=== PATIENT | male | born 1990 | race African-American/Black ===

== ENCOUNTER 2016-11-30 17:21 | Emergency (ER) | payer BC ==
[~2016-11-30] VITALS: Ht 185.4 cm; Wt 79.4 kg
[~2016-11-30 17:21] MED LIST: KEFLEX500 M1 PO; MEDROLDOSEPACK PO; NAPROSYN500 MG PO; NORFLEX100 MG PO; ULTRAM 50MG TAB50 MG PO; ZYRTEC10 MG PO
[2016-11-30 17:23] VITALS: BP 136/93
[2016-11-30] MEDS ORDERED: LIORESAL 10 MG10 MG PO (18:05)
[2016-11-30] MEDS ORDERED: MOBIC15 MG PO (18:05)
[2016-11-30] MEDS ORDERED: LIDODERM 5%1 PATC1 TRANSDERM (18:05)
== END 2016-11-30 18:22 | disposition home or self-care (01) ==
LOC: ER 17:21
DX: S39.012A Strain of muscle, fascia and tendon of lower back, initial encounter (principal); S90.32XA Contusion of left foot, initial encounter; F17.210 Nicotine dependence, cigarettes, uncomplicated; F10.99 Alcohol use, unspecified with unspecified alcohol-induced disorder; W22.8XXA Striking against or struck by other objects, initial encounter; Y93.89 Activity, other specified; Y92.89 Other specified places as the place of occurrence of the external cause; Y99.8 Other external cause status; J45.909 Unspecified asthma, uncomplicated

== ENCOUNTER 2017-01-08 16:55 | Emergency (ER) | payer BC ==
[~2017-01-08] VITALS: Ht 188 cm; Wt 77.1 kg
[~2017-01-08 16:55] MED LIST changes: +LIDODERM 5%1 PATC1 TRANSDERM; +LIORESAL 10 MG10 MG PO; +MOBIC15 MG PO
[2017-01-08 16:58] VITALS: BP 126/87
[2017-01-08] MEDS ORDERED: NORCO 5-325 TA1 EACH PO (17:34)
[2017-01-08] MEDS ORDERED: MOBIC15 MG PO (17:34)
== END 2017-01-08 17:43 | disposition home or self-care (01) ==
LOC: ER 16:55
DX: M54.5 Low back pain (principal); J45.909 Unspecified asthma, uncomplicated; F17.210 Nicotine dependence, cigarettes, uncomplicated; F10.99 Alcohol use, unspecified with unspecified alcohol-induced disorder

== ENCOUNTER 2017-02-08 16:50 | Emergency (ER) | payer BC ==
[~2017-02-08] VITALS: Ht 190.5 cm; Wt 86.2 kg
[~2017-02-08 16:50] MED LIST changes: +NORCO 5-325 TA1 EACH PO
[2017-02-08 16:51] VITALS: BP 150/104
[2017-02-08] MEDS ORDERED: TIZANIDINE HCL4 MG PO (17:02)
[2017-02-08] MEDS ORDERED: IBUPROFEN 600600 M1 PO (17:02)
== END 2017-02-08 17:04 | disposition home or self-care (01) ==
LOC: ER 16:50
DX: G89.29 Other chronic pain (principal); M54.5 Low back pain; M25.561 Pain in right knee; J45.909 Unspecified asthma, uncomplicated; F17.210 Nicotine dependence, cigarettes, uncomplicated; F10.99 Alcohol use, unspecified with unspecified alcohol-induced disorder

== ENCOUNTER 2017-04-14 07:07 | Emergency (ER) | payer OTHER ==
[~2017-04-14] VITALS: Ht 188 cm; Wt 79.4 kg
[~2017-04-14 07:07] MED LIST changes: +IBUPROFEN 600600 M1 PO; +TIZANIDINE HCL4 MG PO
[2017-04-14 07:08] VITALS: BP 119/78
== END 2017-04-14 08:02 | disposition home or self-care (01) ==
LOC: ER 07:07
DX: M25.571 Pain in right ankle and joints of right foot (principal); J45.909 Unspecified asthma, uncomplicated; F17.210 Nicotine dependence, cigarettes, uncomplicated; F10.99 Alcohol use, unspecified with unspecified alcohol-induced disorder; W23.0XXA Caught, crushed, jammed, or pinched between moving objects, initial encounter; Y93.89 Activity, other specified; Y92.89 Other specified places as the place of occurrence of the external cause; Y99.8 Other external cause status